=== PATIENT | female | born 1945 | race Caucasian/White ===

== ENCOUNTER 2017-11-04 12:26 | Outpatient (CLI) | payer MEDICARE | END 2017-11-04 12:27 | disposition home or self-care (01) | LOC: BICMAMMO 12:26 | PROVIDERS: ATTEND Obstetrics & Gynecology | DX: Z12.31 Encounter for screening mammogram for malignant neoplasm of breast (principal); Z80.3 Family history of malignant neoplasm of breast | CPT/HCPCS: 77063; 77067 ==

== ENCOUNTER 2018-12-01 10:45 | Outpatient (CLI) | payer MEDICARE ==
--- NOTE | 2018-12-01 11:36 | MMO ---
Bilateral MAMMO Bilat Screen [facility]. CLINICAL HISTORY: Patient is 73 years old and is seen for screening. The patient has the following family history of breast cancer: mother, at age 67 and maternal grandmother. The patient has no personal history of cancer. VIEWS: The views performed were: bilateral craniocaudal with tomosynthesis and bilateral mediolateral oblique with tomosynthesis. FILMS COMPARED: The present examination has been compared to prior imaging studies performed at [facility] on 09/13/2015, 10/13/2016 and 11/04/2017, and at [facility] on 01/30/2014. MAMMOGRAM FINDINGS: There are scattered fibroglandular densities. There are no suspicious masses, suspicious calcifications, or new areas of architectural distortion. IMPRESSION: THERE IS NO MAMMOGRAPHIC EVIDENCE OF MALIGNANCY. A ROUTINE FOLLOW-UP MAMMOGRAM IN 1 YEAR IS RECOMMENDED. THE RESULTS OF THIS EXAM WERE SENT TO THE PATIENT. ACR BI-RADS Category 1 - Negative MAMMOGRAPHY NOTE: 1. A negative mammogram report should not delay a biopsy if a dominant of clinically suspicious mass is present. 2. Approximately 10% to 15% of breast cancers are not detected by mammography. 3. Adenosis and dense breasts may obscure an underlying neoplasm. Reported by: CAMMY SHANNON MD Electonically Signed: [id number]
== END 2018-12-01 10:46 | disposition home or self-care (01) ==
LOC: BICMAMMO 10:45
PROVIDERS: ATTEND Obstetrics & Gynecology
DX: Z12.31 Encounter for screening mammogram for malignant neoplasm of breast (principal); Z80.3 Family history of malignant neoplasm of breast
CPT/HCPCS: 77063; 77067

== ENCOUNTER 2020-03-08 08:31 | Outpatient (CLI) | payer MEDICARE ==
--- NOTE | 2020-03-08 10:45 | MRI ---
Exam: Brain MRI with and without contrast HISTORY: Memory loss, x1 year. Mild cognitive impairment. COMPARISON: None FINDINGS: Gradient echo sequence: No hemorrhage Calvarium: Appropriate T1 marrow signal intensity Midline brain parenchyma: Unremarkable Cerebrum:No parenchymal mass, mass effect or midline shift. Age-appropriate brain volume. Cortical gr ay-white matter differentiation is preserved. There are T2 and FLAIR white matter hyperintensities compatible with chronic small vessel ischemic change. Ventricles: No evidence of hydrocephalus. Sinuses and mastoid air cells: Mucous retention cyst in the left maxillary sinus. Mild mucosal thicke zacarias of the ethmoid air cells. Adequate mastoid air cell aeration. Diffusion: Central arterial flow is maintained. Absent restricted diffusion. Postcontrast images: No pathologic enhancement of the brain parenchyma. IMPRESSION: 1. Age-appropriate brain volume. 2. Chronic small vessel ischemic changes of the white matter. 3. Absent restricted diffusion. No acute infarct. No pathologic enhancement the brain parenchyma.
== END 2020-03-08 08:32 | disposition home or self-care (01) ==
LOC: SCSMRI 08:31
PROVIDERS: ATTEND Psychiatry & Neurology Neurology
DX: G31.84 Mild cognitive impairment of uncertain or unknown etiology (principal); I67.82 Cerebral ischemia
CPT/HCPCS: 70553

== ENCOUNTER 2022-02-18 21:11 | Inpatient (IN) | payer MEDICARE ==
[2022-02-18] MEDS ORDERED: Fentanyl 100 MCG/2 ML VIAL ONE (21:38)
[2022-02-18 22:25] LABS: #Eosinphils 0.1 thou/uL (0.0-0.7); #Lymphocytes 0.9 thou/uL (1.20-3.40); #Monocytes 0.9 thou/uL (0.11-0.59); #Neutrophils 14.4 thou/uL (1.40-6.50); %Basophils 0.1 % (0.0-1.0); %Eosinophils 0.7 % (0.0-10.0); %Lymphocytes 5.4 % (21.0-51.0); %Monocytes 5.6 % (0.0-10.0); %Neutrophils 88.2 % (42.0-75.0); Hemoglobin 12.3 g/dL (12.0-16.0); Mean Corpuscular HGB CONC 31.9 g/dL (32.0-36.0); Mean Corpuscular Volume 91.1 fL (78.0-98.0); Mean Platelet Volume 9.5 fL (7.4-10.4); Platelet Count 238 thou/uL (130-400); RBC Distribution Width 12.6 % (11.5-14.5); Red Blood Cell (RBC) Count 4.22 mill/uL (4.20-5.40); White Blood Cell (WBC) Count 16.3 thou/uL (4.8-10.8)
[2022-02-18 22:38] LABS: ALT (SGPT) 21 U/L (8-55); AST (SGOT) 23 U/L (5-34); Albumin 4.3 g/dL (3.4-4.8); Alkaline Phosphatase 62 U/L (40-110); Anion Gap 16 mmol/L (10-20); BUN (Urea Nitrogen) 12 mg/dL (9.8-20.1); Bilirubin, Total 0.9 mg/dL (0.2-1.2); Calc. Creatinine Clearance 0 mL/min (70-130); Calcium 8.8 mg/dL (7.8-10.44); Carbon Dioxide 25 mmol/L (23-31); Chloride 102 mmol/L (98-107); Estimated GFR 80; Globulin 2.1 g/dL (2.4-3.5); Glucose 134 mg/dL (83-110); Potassium 3.3 mmol/L (3.5-5.1); Protein, Total 6.4 g/dL (5.8-8.1); Sodium 140 mmol/L (136-145)
[2022-02-18 22:51] LABS: Bilirubin Negative (Negative); Blood, Urine Negative (Negative); Clarity Turbid (Clear); Glucose, Urine (Dipstick) Normal (Negative); Ketone, Urine 10 mg/dL (Negative); Leukocyte Negative Leu/uL (Negative); Nitrite Negative (Negative); Protein, Urine (Dipstick) Negative (Neg-Trace); Specific Gravity, Urine 1.012 (1.002-1.036); Urobilinogen Normal mg/dL (Less than 2)
[2022-02-18 23:10] LABS: SARS-CoV-2 NAA Rapid Test Not Detected (NotDetected)
[2022-02-18] MEDS ORDERED: Morphine 4 MG/ML VIAL ONE (23:25)
[2022-02-18] MEDS ORDERED: Ketorolac Tromethamine 30 MG/ML VIAL ONE (23:25)
[2022-02-18] MEDS ORDERED: Morphine 2 MG/ML VIAL SLOW IVP PRN (23:41)
[2022-02-18] MEDS ORDERED: Ondansetron PF 4 MG/2 ML Vial IVP PRN (23:41)
[2022-02-18] MEDS ORDERED: TETANUS, DIPHTHERIA TOX,ADULT (TDVAX) 0.5 ML VIAL IM ONE (23:41)
[2022-02-18] MEDS ORDERED: Acetaminophen 325 MG TAB PO PRN (23:41)
[2022-02-18] MEDS ORDERED: hydrALAZINE 20 MG/ML VIAL SLOW IVP PRN (23:41)
[2022-02-18] MEDS ORDERED: traMADol HCl 50 MG TAB PO PRN (23:45)
[2022-02-18] MEDS ORDERED: Sodium Chloride 0.9% 1,000 ML IV SCH (23:45)
[2022-02-18] MEDS ORDERED: Cyclobenzaprine 10 MG TAB PO PRN (23:45)
[2022-02-19 00:46] VITALS: BMI 16.9
[2022-02-19] MEDS: traMADol HCl 50 MG TAB PO SCH ×2 (01:07→05:20)
[2022-02-19] MEDS ORDERED: Potassium Chloride 20 MEQ in Premix Bag 1 BAG IVPB SCH (03:00)
[2022-02-19] MEDS: Sodium Chloride 0.9% 1,000 ML IV SCH ×2 (03:34→18:28)
[2022-02-19 05:45] LABS: #Lymphocytes 0.7 thou/uL (1.20-3.40); #Monocytes 0.9 thou/uL (0.11-0.59); #Neutrophils 10.2 thou/uL (1.40-6.50); %Basophils 0.3 % (0.0-1.0); %Eosinophils 0.2 % (0.0-10.0); %Lymphocytes 6.2 % (21.0-51.0); %Monocytes 7.8 % (0.0-10.0); %Neutrophils 85.6 % (42.0-75.0); Hemoglobin 11.1 g/dL (12.0-16.0); Mean Corpuscular Hemoglobin 28.4 pg (27.0-31.0); Mean Corpuscular Volume 91.7 fL (78.0-98.0); Mean Platelet Volume 9.2 fL (7.4-10.4); Platelet Count 247 thou/uL (130-400); RBC Distribution Width 12.7 % (11.5-14.5); Red Blood Cell (RBC) Count 3.92 mill/uL (4.20-5.40); White Blood Cell (WBC) Count 11.9 thou/uL (4.8-10.8)
[2022-02-19 06:02] LABS: Anion Gap 14 mmol/L (10-20); BUN (Urea Nitrogen) 12 mg/dL (9.8-20.1); Calc. Creatinine Clearance 49 mL/min (70-130); Calcium 8.3 mg/dL (7.8-10.44); Carbon Dioxide 24 mmol/L (23-31); Chloride 105 mmol/L (98-107); Estimated GFR 88; Glucose 137 mg/dL (83-110); Magnesium 1.9 mg/dL (1.6-2.6); Sodium 139 mmol/L (136-145)
[2022-02-19 06:29] LABS: Prothrombin Time 13.4 sec (12.0-14.7)
[2022-02-19 06:30] LABS: PTT 25.7 sec (22.9-36.1)
[2022-02-19] MEDS: Acetaminophen/Codeine 30-300mg Tablet PO SCH ×3 (06:40→18:05)
[2022-02-19] MEDS: Levothyroxine Sodium 50 MCG TAB PO SCH (06:40)
[2022-02-19 07:08] LABS: Troponin I 0.015 ng/mL (< 0.028)
[2022-02-19] MEDS ORDERED: CEFAZOLIN 2 GM in Sodium Chloride 0.9% 100 ML IVPB SCH (07:45)
[2022-02-19] MEDS ORDERED: FLU VACC QS2022-23(65YR UP)/PF 240 MCG/0.7 ML SYRINGE IM ONE (09:00)
[2022-02-19] MEDS ORDERED: Polyethylene Glycol 3350 17 GM Packet PO SCH (09:00)
[2022-02-19] MEDS ORDERED: Senokot S 8.6-50 MG TAB PO SCH (09:00)
[2022-02-19] MEDS ORDERED: Neomycin-Polymyxin 1 ML AMP ONE (12:28)
[2022-02-19] MEDS ORDERED: fentaNYL Citrate/PF 100 MCG/2 ML SYRINGE ONE ×2 (12:31→14:43)
[2022-02-19] MEDS ORDERED: Sodium Chloride 0.9% 100 ML ONE (12:41)
[2022-02-19] MEDS ORDERED: CEFAZOLIN 2 GM VIAL ONE (12:41)
[2022-02-19] MEDS ORDERED: Ondansetron PF 4 MG/2 ML Vial ONE (12:52)
[2022-02-19] MEDS ORDERED: NEOSTIGMINE 3 MG/3 ML SYR 3 MG/3 ML SYRINGE ONE (12:52)
[2022-02-19] MEDS ORDERED: Rocuronium Bromide 10 MG/ML (10ML VIAL) ONE (12:52)
[2022-02-19] MEDS ORDERED: PROPOFOL 200 MG/20 ML VIAL ONE (12:52)
[2022-02-19] MEDS ORDERED: Dexamethasone 20 MG/5 ML VIAL ONE (12:52)
[2022-02-19] MEDS ORDERED: Glycopyrrolate 0.2 MG/ML 5 ML SYRINGE ONE (12:52)
[2022-02-19] MEDS ORDERED: PHENYLEPHRINE-NS 100 MCG/ML 10 ML SYRINGE ONE (12:52)
[2022-02-19] MEDS ORDERED: ePHEDrine 50 MG/ML VIAL ONE (12:52)
[2022-02-19] MEDS ORDERED: Promethazine HCl 25 MG/ML VIAL IVPB PRN (14:21)
[2022-02-19] MEDS ORDERED: Ondansetron HCl/PF 4 MG/2 ML Vial IVP PRN (14:21)
[2022-02-19] MEDS ORDERED: Promethazine HCl 25 MG/ML VIAL IM PRN (14:21)
[2022-02-19] MEDS: Famotidine/PF 20 mg/2ml Vial SLOW IVP SCH ×2 (14:33→20:56)
[2022-02-19] MEDS: Atorvastatin Calcium 20 MG TAB PO SCH (14:33)
[2022-02-19] MEDS: Multivitamin W/ Minerals 1 TAB PO SCH (14:34)
[2022-02-19] MEDS: Senokot S 8.6-50 MG TAB PO SCH ×2 (14:34→20:56)
[2022-02-19] MEDS: Polyethylene Glycol 3350 17 GM Packet PO SCH (14:34)
[2022-02-19] MEDS: Donepezil HCl 10 MG TAB PO SCH (20:56)
[2022-02-19] MEDS: CEFAZOLIN 2 GM in Sodium Chloride 0.9% 100 ML IVPB SCH (20:58)
[2022-02-19] MEDS: Ibuprofen 200 MG TAB PO PRN (21:06)
[2022-02-20] MEDS: Acetaminophen/Codeine 30-300mg Tablet PO SCH ×5 (00:54→23:54)
[2022-02-20 05:48] LABS: #Eosinphils 0.1 thou/uL (0.0-0.7); #Lymphocytes 0.9 thou/uL (1.20-3.40); #Monocytes 1.1 thou/uL (0.11-0.59); #Neutrophils 8.1 thou/uL (1.40-6.50); %Basophils 0.1 % (0.0-1.0); %Eosinophils 0.7 % (0.0-10.0); %Lymphocytes 8.8 % (21.0-51.0); %Monocytes 10.3 % (0.0-10.0); Hemoglobin 10.2 g/dL (12.0-16.0); Mean Corpuscular HGB CONC 31.8 g/dL (32.0-36.0); Mean Corpuscular Hemoglobin 29.2 pg (27.0-31.0); Mean Corpuscular Volume 91.8 fL (78.0-98.0); Mean Platelet Volume 8.9 fL (7.4-10.4); Platelet Count 224 thou/uL (130-400); RBC Distribution Width 12.8 % (11.5-14.5); Red Blood Cell (RBC) Count 3.47 mill/uL (4.20-5.40); White Blood Cell (WBC) Count 10.2 thou/uL (4.8-10.8)
[2022-02-20] MEDS: CEFAZOLIN 2 GM in Sodium Chloride 0.9% 100 ML IVPB SCH (05:57)
[2022-02-20] MEDS: Levothyroxine Sodium 50 MCG TAB PO SCH (05:57)
[2022-02-20 06:18] LABS: Anion Gap 11 mmol/L (10-20); BUN (Urea Nitrogen) 11 mg/dL (9.8-20.1); Calc. Creatinine Clearance 51 mL/min (70-130); Calcium 7.7 mg/dL (7.8-10.44); Carbon Dioxide 25 mmol/L (23-31); Chloride 106 mmol/L (98-107); Estimated GFR 91; Glucose 123 mg/dL (83-110); Magnesium 2.1 mg/dL (1.6-2.6); Phosphorus 2.3 mg/dL (2.3-4.7); Sodium 138 mmol/L (136-145)
[2022-02-20] MEDS: Atorvastatin Calcium 20 MG TAB PO SCH (09:31)
[2022-02-20] MEDS: Multivitamin W/ Minerals 1 TAB PO SCH (09:32)
[2022-02-20] MEDS: Famotidine 20 MG TAB PO SCH ×2 (09:32→21:01)
[2022-02-20] MEDS: Polyethylene Glycol 3350 17 GM Packet PO SCH (09:32)
[2022-02-20] MEDS: Aspirin 81 mg Enteric Coated Tablet PO SCH ×2 (09:32→21:00)
[2022-02-20] MEDS: Senokot S 8.6-50 MG TAB PO SCH ×2 (09:32→21:01)
[2022-02-20] MEDS: Ibuprofen 200 MG TAB PO PRN (11:44)
[2022-02-20] MEDS ORDERED: Morphine 2 MG/ML VIAL SLOW IVP PRN (11:51)
[2022-02-20] MEDS: Donepezil HCl 10 MG TAB PO SCH (20:59)
[2022-02-21] MEDS: Acetaminophen/Codeine 30-300mg Tablet PO SCH ×3 (05:26→17:31)
[2022-02-21] MEDS: Levothyroxine Sodium 50 MCG TAB PO SCH (05:27)
[2022-02-21] MEDS: Aspirin 81 mg Enteric Coated Tablet PO SCH (08:52)
[2022-02-21] MEDS: Famotidine 20 MG TAB PO SCH (08:52)
[2022-02-21] MEDS: Atorvastatin Calcium 20 MG TAB PO SCH (08:52)
[2022-02-21] MEDS: Multivitamin W/ Minerals 1 TAB PO SCH (08:52)
[2022-02-21] MEDS: Senokot S 8.6-50 MG TAB PO SCH (08:52)
[2022-02-21] MEDS: Polyethylene Glycol 3350 17 GM Packet PO SCH (08:55)
[2022-02-21] MEDS: Ibuprofen 200 MG TAB PO PRN (15:22)
[2022-02-21 16:40] VITALS: BP 100/57; TEMP 98.2
[2022-02-21] MEDS ORDERED: Amoxicillin/Potassium Clav 875 MG TAB PO SCH (21:00)
== END 2022-02-21 19:30 | DRG 522 ==
LOC: ERS 21:11 → SURG A 22:31
PROVIDERS: ADMIT Specialist; ATTEND Surgery
PROC: 0SRR0JZ Replacement of Right Hip Joint, Femoral Surface with Synthetic Substitute, Open Approach (ICD-10-PCS; principal; 2022-02-19)
PROC: 0PSFXZZ Reposition Right Humeral Shaft, External Approach (ICD-10-PCS; 2022-02-19)
DX: S72.011A Unspecified intracapsular fracture of right femur, initial encounter for closed fracture (principal); S42.291A Other displaced fracture of upper end of right humerus, initial encounter for closed fracture; E78.5 Hyperlipidemia, unspecified; I10 Essential (primary) hypertension; F03.90 Unspecified dementia, unspecified severity, without behavioral disturbance, psychotic disturbance, mood disturbance, and anxiety; Z79.899 Other long term (current) drug therapy; W10.9XXA Fall (on) (from) unspecified stairs and steps, initial encounter; Z20.822 Contact with and (suspected) exposure to COVID-19
CPT/HCPCS: 36415; 70450; 71045; 72125; 72170; 76000; 80048; 80053; 81003; 82550; 83735; 84100; 84484; 85025; 85610; 85730; 86850; 86900; 86901; 93005; 93880; 96374; 96375; C1776; G0390; J0690; J1100; J1885; J2270; J2405; J2704; J3010; J3480; J3490; J7050; S0028; U0002

== ENCOUNTER 2022-04-17 11:45 | Outpatient (CLI) | payer MEDICARE | END 2022-04-17 11:46 | disposition home or self-care (01) | LOC: PET 11:45 | PROVIDERS: ATTEND Pediatrics | DX: F32.9 Major depressive disorder, single episode, unspecified (principal); R41.3 Other amnesia; F01.50 Vascular dementia, unspecified severity, without behavioral disturbance, psychotic disturbance, mood disturbance, and anxiety | CPT/HCPCS: 78803; A9552 ==

== ENCOUNTER 2023-07-01 11:45 | Outpatient (CLI) | payer MEDICARE | END 2023-07-01 11:46 | LOC: PET 11:45 | PROVIDERS: ATTEND Psychiatry & Neurology Neurology | DX: R41.3 Other amnesia (principal); R93.0 Abnormal findings on diagnostic imaging of skull and head, not elsewhere classified | CPT/HCPCS: 78803; A9552 ==

== ENCOUNTER 2023-07-02 22:34 | Emergency (ER) | payer MEDICARE ==
[2023-07-02] MEDS ORDERED: Acetaminophen 500 MG TAB ONE (23:19)
[2023-07-02] MEDS ORDERED: Ondansetron ODT 4 MG TAB ONE (23:20)
[2023-07-02 23:37] LABS: #Basophils 0.1 thou/uL (0.0-0.2); #Eosinphils 0.2 thou/uL (0.0-0.7); #Monocytes 0.6 thou/uL (0.11-0.59); #Neutrophils 8.1 thou/uL (1.40-6.50); %Basophils 0.7 % (0.0-1.0); %Eosinophils 1.7 % (0.0-10.0); %Lymphocytes 16.1 % (21.0-51.0); %Monocytes 5.2 % (0.0-10.0); Hematocrit 38.3 % (36.0-47.0); Mean Corpuscular HGB CONC 31.3 g/dL (32.0-36.0); Mean Corpuscular Volume 89.5 fl (78.0-98.0); Mean Platelet Volume 10.7 fL (7.4-10.4); Platelet Count 237 10x3/uL (130-400); RBC Distribution Width 14.3 % (11.5-14.5); Red Blood Cell (RBC) Count 4.28 mill/uL (4.20-5.40); White Blood Cell (WBC) Count 10.8 10x3/uL (4.8-10.8)
[2023-07-02 23:59] LABS: ALT (SGPT) 13 U/L (8-55); AST (SGOT) 18 U/L (5-34); Albumin 4.1 g/dL (3.4-4.8); Alkaline Phosphatase 71 U/L (40-110); Anion Gap 13 mmol/L (10-20); BUN (Urea Nitrogen) 21 mg/dL (9.8-20.1); Bilirubin, Total 0.6 mg/dL (0.2-1.2); Calc. Creatinine Clearance 0 mL/min (70-130); Calcium 8.9 mg/dL (7.8-10.44); Carbon Dioxide 24 mmol/L (23-31); Chloride 107 mmol/L (98-107); Estimated GFR 63; Globulin 1.9 g/dL (2.4-3.5); Glucose 156 mg/dL (83-110); Lipase 54 U/L (8-78); Potassium 3.6 mmol/L (3.5-5.1); Sodium 140 mmol/L (136-145)
[2023-07-03 00:10] LABS: Troponin I Less than 0.010 ng/mL (< 0.028)
== END 2023-07-03 03:00 | disposition home or self-care (01) ==
LOC: ERS 22:34
DX: S22.32XA Fracture of one rib, left side, initial encounter for closed fracture (principal); F03.90 Unspecified dementia, unspecified severity, without behavioral disturbance, psychotic disturbance, mood disturbance, and anxiety; Z55.6 Problems related to health literacy; W10.9XXA Fall (on) (from) unspecified stairs and steps, initial encounter; Y92.090 Kitchen in other non-institutional residence as the place of occurrence of the external cause
CPT/HCPCS: 36415; 70450; 71045; 72125; 72128; 72131; 72170; 80053; 83690; 84484; 85025; 93005; Q0162

== ENCOUNTER 2025-01-19 02:31 | Emergency (ER) | payer MEDICARE ==
[2025-01-19 03:29] LABS: #Basophils 0.08 10x3/uL (0.0-0.2); #Eosinophils 0.21 10x3/uL (0.0-0.7); #Monocytes 0.69 10x3/uL (0.11-0.59); #Neutrophils 4.36 10x3/uL (1.40-6.50); %Basophils 1.1 % (0.0-1.0); %Eosinophils 3.0 % (0.0-10.0); %Lymphocytes 20.5 % (21.0-51.0); %Monocytes 9.9 % (0.0-10.0); %Neutrophils 62.8 % (42.0-75.0); Hematocrit 40.9 % (36.0-47.0); Hemoglobin 12.5 g/dL (12.0-16.0); Mean Corpuscular Hemoglobin 27.3 pg (27.0-31.0); Mean Corpuscular Volume 89.3 fL (78.0-98.0); Platelet Count 213 10x3/uL (130-400); Red Blood Cell (RBC) Count 4.58 mill/uL (4.20-5.40); White Blood Cell (WBC) Count 6.96 10x3/uL (4.8-10.8)
[2025-01-19 03:48] LABS: Bacteria/HPF None Seen HPF (None Seen); CAUTI Indications for Culture Alt mental st,lethar; Glucose, Urine (Dipstick) Normal (Negative); Leukocyte 25 Leu/uL (Negative); Protein, Urine (Dipstick) Negative (Neg-Trace); RBC/HPF 0-3 HPF (0-3); Specific Gravity, Urine 1.017 (1.002-1.036); WBC/HPF 0-3 HPF (0-3)
[2025-01-19 03:49] LABS: Urine Culture Reflex No No
[2025-01-19 04:04] LABS: ALT (SGPT) 20 U/L (Less than 34); AST (SGOT) 25 U/L (11-34); Albumin 3.7 g/dL (3.1-4.5); Alkaline Phosphatase 71 U/L (40-110); Anion Gap 15 mmol/L (10-20); BUN (Urea Nitrogen) 24 mg/dL (9.8-20.1); Bilirubin, Total 0.3 mg/dL (0.3-1.2); CK (CPK) 53 U/L (29-168); Calc. Creatinine Clearance 0 mL/min (70-130); Calcium 8.9 mg/dL (7.8-10.44); Carbon Dioxide 24 mmol/L (23-31); Chloride 108 mmol/L (98-107); Globulin 2.6 g/dL (2.4-3.5); Glucose 127 mg/dL (83-110); Potassium 3.7 mmol/L (3.5-5.1); Sodium 143 mmol/L (136-145)
[2025-01-19 04:25] LABS: Thyroid Stimulating Hormone 4.4934 uIU/mL (0.35-4.94)
[2025-01-19 04:45] LABS: Free T4 (Free Thyroxine) 0.74 ng/dL (0.70-1.48)
== END 2025-01-19 06:15 ==
LOC: ERS 02:31
DX: S01.111A Laceration without foreign body of right eyelid and periocular area, initial encounter (principal); E78.5 Hyperlipidemia, unspecified; Z79.899 Other long term (current) drug therapy; W01.0XXA Fall on same level from slipping, tripping and stumbling without subsequent striking against object, initial encounter
CPT/HCPCS: 12011; 51701; 70450; 72125; 80053; 81001; 82550; 84439; 84443; 84484; 85025; 93005